=== PATIENT | male | born 1945 ===

== ENCOUNTER 2018-04-01 13:30 | Inpatient (IN) | payer OTHER ==
[~2018-04-01] VITALS: Ht 177.8 cm; Wt 74.8 kg
[2018-05-29] MEDS ORDERED: SYNTHROID50 MCG PO (16:52)
[2018-05-29] MEDS ORDERED: GABAPENTIN600 MG PO (16:52)
[2018-05-29] MEDS ORDERED: PLAVIX75 MG PO (16:53)
[2018-06-05] MEDS ORDERED: DOCUSATE SODIU100 MG PO (09:44)
[2018-06-05] MEDS ORDERED: GABAPENTIN800 MG PO (09:44)
[2018-06-05] MEDS ORDERED: AMOX-CLAV 875-1 EACH PO (09:47)
[2018-06-05] MEDS ORDERED: CLONAZEPAM1 MG PO (09:48)
[2018-06-05] MEDS ORDERED: PERCOCET 5-3251 EACH PO (09:48)
== END 2018-06-05 13:49 | disposition home or self-care (01) | DRG 455 ==
LOC: EDBD 06-04 07:51 → SURH 06-04 07:51 → O/R 06-04 07:51 → SURH 06-04 09:45
PROVIDERS: Orthopaedic Surgery Orthopaedic Surgery of the Spine
PROC: 0SG10A0 Fusion of 2 or more Lumbar Vertebral Joints with Interbody Fusion Device, Anterior Approach, Anterior Column, Open Approach (ICD-10-PCS; 2018-06-04)
PROC: 0SG1071 Fusion of 2 or more Lumbar Vertebral Joints with Autologous Tissue Substitute, Posterior Approach, Posterior Column, Open Approach (ICD-10-PCS; 2018-06-04)
PROC: 0SG10AJ Fusion of 2 or more Lumbar Vertebral Joints with Interbody Fusion Device, Posterior Approach, Anterior Column, Open Approach (ICD-10-PCS; 2018-06-04)
PROC: 07DS3ZZ Extraction of Vertebral Bone Marrow, Percutaneous Approach (ICD-10-PCS; 2018-06-04)
PROC: 0ST20ZZ Resection of Lumbar Vertebral Disc, Open Approach (ICD-10-PCS; principal; 2018-06-04 09:45)
DX: M41.86 Other forms of scoliosis, lumbar region (principal); M48.062 Spinal stenosis, lumbar region with neurogenic claudication; M51.36 Other intervertebral disc degeneration, lumbar region; M47.26 Other spondylosis with radiculopathy, lumbar region